=== PATIENT | female | born 1985 | race American Indian/Alaskan Native ===

== ENCOUNTER 2018-02-11 10:33 | Inpatient (IN) | payer OTHER, MEDICARE ==
--- NOTE | 2018-02-11 10:38 | Emergency Department Report ---
- General Stated complaint: POSS STROKE Time Seen by Provider: 02/11/18 10:33 Source: patient, EMS Mode of arrival: Ambulatory Limitations: No Limitations - History of Present Illness Initial comments: Patient is a 32-year-old female? Emergency room with left-sided weakness and left-sided facial droop. Patient states she went to bed last night feeling fine after being discharged from [facility]. Patient is not sure what she was in the hospital for. Son is at bedside. History of 5 with son. Her son and patient patient was woke up approximately hour and a half before arrival and was not able to walk. Patient states she is not able to use her left arm or left leg. And is having difficulty speaking. Last known well time was the night prior before going to sleep at 11 PM. Patient denies chest pain shortness of breath. Patient states she is having difficulty speaking. Patient states she is having some numbness in her left arm and leg. MD Complaint: focal weakness -: Sudden Location: LUE, LLE, L face Severity: severe Consistency: constant Improves with: none Worsens with: none Context: recent illness Associated Symptoms: denies: chest pain, confusion, dark stools, diaphoresis, dysuria, easy bruising, fever/chills, headaches, loss of appetite, nausea/ vomiting, myalgias, rash, shortness of breath, syncope - Related Data Home Medications Medication Instructions Recorded Confirmed Last Taken Carvedilol [Coreg] 25 mg PO BID 02/11/18 02/11/18 Unknown Insulin Aspart [NovoLOG Flexpen] 20 units SUB-Q QDAY 02/11/18 02/11/18 Unknown NIFEdipine [] 90 mg PO DAILY 02/11/18 02/11/18 Unknown hydrALAZINE [Apresoline TAB] 100 mg PO TID 02/11/18 02/11/18 Unknown Allergies Allergy/AdvReac Type Severity Reaction Status Date / Time gluten Allergy Unknown Verified 02/11/18 10:37 latex Allergy Unknown Verified 02/11/18 10:34 nickel Allergy Unknown Verified 02/11/18 10:37 ED Review of Systems ROS: Stated complaint: POSS STROKE Other details as noted in HPI Constitutional: denies: chills, fever Eyes: denies: eye pain, eye discharge, vision change ENT: denies: ear pain, throat pain Respiratory: denies: cough, shortness of breath, wheezing Cardiovascular: denies: chest pain, palpitations Endocrine: no symptoms reported Gastrointestinal: denies: abdominal pain, nausea, diarrhea Genitourinary: denies: urgency, dysuria, discharge Musculoskeletal: denies: back pain, joint swelling, arthralgia Skin: denies: rash, lesions Neurological: weakness, numbness, abnormal gait. denies: headache Psychiatric: denies: anxiety, depression Hematological/Lymphatic: denies: easy bleeding, easy bruising ED Past Medical Hx - Past Medical History Previous Medical History?: Yes Hx Hypertension: Yes Hx CVA: No Hx Heart Attack/AMI: No Hx Congestive Heart Failure: No Hx Diabetes: Yes Hx Renal Disease: Yes (esrd. l arm shunt) - Surgical History Past Surgical History?: Yes Additional Surgical History: hd shunt - Family History Family history: hypertension - Social History Smoking Status: Never Smoker Substance Use Type: None - Medications Home Medications: Home Medications Medication Instructions Recorded Confirmed Last Taken Type Carvedilol [Coreg] 25 mg PO BID 02/11/18 02/11/18 Unknown History Insulin Aspart [NovoLOG Flexpen] 20 units SUB-Q QDAY 02/11/18 02/11/18 Unknown History NIFEdipine [] 90 mg PO DAILY 02/11/18 02/11/18 Unknown History hydrALAZINE [Apresoline TAB] 100 mg PO TID 02/11/18 02/11/18 Unknown History ED Physical Exam - General General appearance: alert, lethargic - Head Head exam: Present: atraumatic, normocephalic - Eye Eye exam: Present: normal appearance, PERRL Pupils: Present: normal accommodation - ENT ENT exam: Present: mucous membranes moist - Neck Neck exam: Present: normal inspection - Respiratory Respiratory exam: Present: normal lung sounds bilaterally. Absent: respiratory distress, wheezes, rales, rhonchi - Cardiovascular Cardiovascular Exam: Present: regular rate, normal rhythm. Absent: systolic murmur, diastolic murmur, rubs, gallop - GI/Abdominal GI/Abdominal exam: Present: soft, normal bowel sounds - Extremities Exam Extremities exam: Present: normal inspection - Back Exam Back exam: Present: normal inspection - Neurological Exam Neurological exam: Present: oriented X3 - Skin Skin exam: Present: warm, dry, intact, normal color. Absent: rash - Assessment Assessment Interval: Baseline - Level of Consciousness 1a. Level of Consciousness: alert - LOC Questions 1b. LOC Questions: answers correctly - LOC Command 1c. LOC Commands: performs tasks correctly - Best Gaze 2. Best Gaze: normal - Visual 3. Visual: no visual loss - Facial Palsy 4. Facial Palsy: partial paralysis - Motor Arm 5b. Motor Arm Right: no drift 5a. Motor Arm Left: no movement - Motor Leg 6a. Motor Leg Left: no movement 6b. Motor Leg Right: no drift - Limb Ataxia 7. Limb Ataxia: absent - Sensory 8. Sensory: mild/moderate sensory loss - Best Language 9. Best Language: no aphasia - Dysarthria 10. Dysarthria: mild/moderate dysarthria - Extinction and Inattention 11. Extinction/Inattention: no abnormality - Scoring Total Score: 12 Stroke Severity: Moderate Stroke ED Course Vital Signs 02/11/18 02/11/18 02/11/18 11:00 11:10 12:39 Temperature Pulse Rate 91 H 91 H Respiratory 18 18 16 Rate Blood Pressure 256/129 256/126 [Left] O2 Sat by Pulse 95 100 Oximetry 02/11/18 02/11/18 13:03 14:37 Temperature 98.6 F Pulse Rate 87 89 Respiratory 17 14 Rate Blood Pressure 126/63 195/94 [Left] O2 Sat by Pulse 97 99 Oximetry - Reevaluation(s) Reevaluation #1: Patient assessment on arrival. Patient noted to have left-sided weakness and a left facial droop. Patient sent for a CT scan of her head. We'll activate stroke protocol 02/11/18 10:20 Reevaluation #2: Radiologist called with negative CT head results 02/11/18 10:45 Reevaluation #3: Mother at bedside. Mother states that the patient has dialysis in to much fluid was pulled off she is has these strokelike symptoms. Patient has had left sided weakness multiple times after dialysis. Patient was discharged from the hospital one day prior for the same symptoms after spending a week in the [facility]. Blood pressure is better. We will start insulin gtt 02/11/18 13:07 Reevaluation #4: Blood pressure below 180/110. Patient in room. patient just completed CTA. CTA is pending. CTA was delayed due to machine not functioning. 02/11/18 14:38 - Consultations Consultation #1: Dr. Rojas, tele neuro consulted for possible TPA. Neurologist states the patient is not a candidate for TPA but recommends admission to the hospital and a CTA of neck and head right now. 02/11/18 10:59 Consultation #2: Hospitalist consulted for admission. Dr. Owens to assume care. Hospitalist to admit. Full report given to hospitalists. 02/11/18 15:04 ED Medical Decision Making - Lab Data Result diagrams: 02/11/18 10:46 02/11/18 10:46 - EKG Data -: EKG Interpreted by Ny EKG shows normal: sinus rhythm, axis, intervals, QRS complexes, ST-T waves Rate: normal - Radiology Data Radiology results: report reviewed CT HEAD WITHOUT CONTRAST: HISTORY: Neurological deficit. TECHNIQUE: Sequential 2.5mm CT images. COMPARISON: none. FINDINGS: Cerebral Parenchyma: Within normal limits. Cerebellum: Within normal limits. Brainstem: Within normal limits. Ventricles: Normal. Sella: Normal. Extra-axial spaces: Normal. Basal Cisterns: Normal. Intracranial Hemorrhage: None. Midline Shift: None. Calvarium: Normal. Sinuses: Normal. Mastoid Air Cells: Normal. Visualized Orbits: Normal. IMPRESSION: Cranial CT scan within normal limits. These findings were discussed with Dr. Morejon in the emergency department at 1041 hrs. CTA HEAD: HISTORY: CVA. TECHNIQUE: Helical CT images after IV contrast with 0.625mm reformations. Sagittal and coronal reformats. Rotational MIP images. 3D volume rendering technique. FINDINGS: The arterial structures of the anterior and posterior circulations are patent throughout. No evidence for stenosis, occlusion or aneurysm. IMPRESSION: Unremarkable CTA head. Transcribed By: TTR Dictated By: GA CASON JR, MD Electronically Authenticated By: GA CASON JR, MD Signed Date/Time: 02/11/18 1437 CTA NECK: HISTORY: CVA. TECHNIQUE: Helical CT following IV contrast. Sagittal and coronal reformatted images. 3D volume rendering technique. Stenosis was calculated using NASCET criteria. FINDINGS: The visualized aortic arch, innominate artery and proximal bilateral subclavian arteries are widely patent with less than 20% stenosis. Within the right carotid system: Less than 20% stenosis. Within the left carotid system: Less than 20% stenosis. The cervical vertebral arteries are patent with less than 20% stenosis. Moderate layering bilateral pleural effusions are partially imaged at the lung apices. IMPRESSION: Unremarkable CTA of the neck. Bilateral pleural effusions. Transcribed By: TTR Dictated By: GA CASON JR, MD Electronically Authenticated By: GA CASON JR, MD Signed Date/Time: 02/11/18 1438 - Medical Decision Making 32-year-old female presents emergent with left-sided weakness and paralysis and left-sided facial droop. Patient's outside the window for TPA. CT head and neck negative for thrombus. Neuro Was Consulted. Patient to Be Admitted to the Hospitalist Service for Further Evaluation and Treatment. Elevated troponin most likely secondary to end-stage renal disease. Patient is currently on insulin drip and nicardipine drip - Differential Diagnosis cva. hyperglcemia, htn,. Critical Care Time: Yes Critical care attestation.: If time is entered above; I have spent that time in minutes in the direct care of this critically ill patient, excluding procedure time. Critical Care Time: 65 minutes for cc time ED Disposition Clinical Impression: CVA (cerebral vascular accident), Left-sided weakness, Facial droop, Elevated troponin, End stage renal disease Disposition: OP ADMIT IP TO THIS HOSP Is pt being admited?: Yes Does the pt Need Aspirin: No Condition: Critical Time of Disposition: 15:02
--- NOTE | 2018-02-11 10:47 | Cat Scan Report ---
CT HEAD WITHOUT CONTRAST: HISTORY: Neurological deficit. TECHNIQUE: Sequential 2.5mm CT images. COMPARISON: none. FINDINGS: Cerebral Parenchyma: Within normal limits. Cerebellum: Within normal limits. Brainstem: Within normal limits. Ventricles: Normal. Sella: Normal. Extra-axial spaces: Normal. Basal Cisterns: Normal. Intracranial Hemorrhage: None. Midline Shift: None. Calvarium: Normal. Sinuses: Normal. Mastoid Air Cells: Normal. Visualized Orbits: Normal. IMPRESSION: Cranial CT scan within normal limits. These findings were discussed with Dr. Morejon in the emergency department at 1041 hrs.
[2018-02-11 11:02] LABS: Basophils % (Auto) 0.9 % (0.0-1.8); Eosinophils % (Auto) 0.6 % (0.0-4.3); Hematocrit 29.6 % (30.3-42.9); Hemoglobin 9.7 gm/dl (10.1-14.3); Lymphocytes # (Auto) 0.4 K/mm3 (1.2-5.4); Lymphocytes % (Auto) 9.1 % (13.4-35.0); Mean Corpuscular HGB Conc 33 % (30-34); Mean Corpuscular Hemoglobin 28 pg (28-32); Mean Corpuscular Volume 84 fl (79-97); Monocytes # (Auto) 0.2 K/mm3 (0.0-0.8); Monocytes % (Auto) 5.6 % (0.0-7.3); Platelet Count 147 K/mm3 (140-440); Red Blood Count 3.51 M/mm3 (3.65-5.03)
[2018-02-11 11:15] LABS: Calcium 8.8 mg/dL (8.4-10.2)
[2018-02-11 11:16] LABS: INR 0.95 (0.87-1.13)
[2018-02-11 11:17] LABS: Partial Thromboplastin Time 25.2 Sec. (24.2-36.6)
[2018-02-11] MEDS ORDERED: CARDENE 50 MG in NACL 0.9% 250ML 230 ML IV SCH (12:00)
[2018-02-11] MEDS ORDERED: HumuLIN R 100 UNITS in NACL 0.9% 99 ML IV SCH ×2 (13:30→16:00)
--- NOTE | 2018-02-11 14:41 | Cat Scan Report ---
CTA NECK: HISTORY: CVA. TECHNIQUE: Helical CT following IV contrast. Sagittal and coronal reformatted images. 3D volume rendering technique. Stenosis was calculated using NASCET criteria. FINDINGS: The visualized aortic arch, innominate artery and proximal bilateral subclavian arteries are widely patent with less than 20% stenosis. Within the right carotid system: Less than 20% stenosis. Within the left carotid system: Less than 20% stenosis. The cervical vertebral arteries are patent with less than 20% stenosis. Moderate layering bilateral pleural effusions are partially imaged at the lung apices. IMPRESSION: Unremarkable CTA of the neck. Bilateral pleural effusions.
--- NOTE | 2018-02-11 14:43 | Cat Scan Report ---
CTA HEAD: HISTORY: CVA. TECHNIQUE: Helical CT images after IV contrast with 0.625mm reformations. Sagittal and coronal reformats. Rotational MIP images. 3D volume rendering technique. FINDINGS: The arterial structures of the anterior and posterior circulations are patent throughout. No evidence for stenosis, occlusion or aneurysm. IMPRESSION: Unremarkable CTA head.
--- NOTE | 2018-02-11 15:03 | History and Physical Report ---
History of Present Illness Chief complaint: weak History of present illness: 32 YO Female with ESRD on HD, DM, Gastroparesis, HTN presents to ED for evaluation. Pt is confused and unable to provide history. Pt mother and aunt at bedside and provide history. As per family, the patient was in her usual state of health at bedtime around 2300 hrs, but awoke from sleep this morning around 0900hrs and complained of slurred speech, inability to move left arm and left leg. EMS notified, and upon arrival the patient was found to have confusion. Pt transported to [facility] for further care. Pt seen and evaluated in ED and found to have DKA, Encephalopathy, ESRD, and Hypertensive Emergency. Pt also found to have symptoms consistent with CVA. Pt admitted to ICU. No reports of fever, chills, CP, Palpitations, NVD, Syncope, Trauma, BRBPR, Unintentional weight loss , night sweats. Pt discharged from [facility] on day prior to admission. Past History Past Medical History: diabetes, ESRD, hypertension Past Surgical History: Other (AV Fistula) Social history: . denies: smoking, alcohol abuse, prescription drug abuse Family history: hypertension Medications and Allergies Allergies Allergy/AdvReac Type Severity Reaction Status Date / Time gluten Allergy Unknown Verified 02/11/18 10:37 latex Allergy Unknown Verified 02/11/18 10:34 nickel Allergy Unknown Verified 02/11/18 10:37 Home Medications Medication Instructions Recorded Confirmed Last Taken Type Carvedilol [Coreg] 25 mg PO BID 02/11/18 02/11/18 Unknown History Insulin Aspart [NovoLOG Flexpen] 20 units SUB-Q QDAY 02/11/18 02/11/18 Unknown History NIFEdipine [] 90 mg PO DAILY 02/11/18 02/11/18 Unknown History hydrALAZINE [Apresoline TAB] 100 mg PO TID 02/11/18 02/11/18 Unknown History Active Meds: Active Medications Nicardipine HCl 50 mg/ Sodium (Chloride) 250 mls @ 25 mls/hr IV TITR EDVIN; Protocol Last Admin: 02/11/18 12:42 Dose: 5 mg/hr, 25 mls/hr Insulin Human Regular 100 (units/ Sodium Chloride) 100 mls @ 1 mls/hr IV TITR EDVIN; Protocol Last Admin: 02/11/18 14:09 Dose: 8 units/hr, 8 mls/hr Review of Systems ROS unobtainable: due to mental status Exam - Constitutional Vitals: Temp Pulse Resp BP Pulse Ox 98.6 F 89 14 195/94 99 02/11/18 13:03 02/11/18 14:37 02/11/18 14:37 02/11/18 14:37 02/11/18 14:37 General appearance: Present: severe distress - EENT Eyes: Present: PERRL ENT: hearing intact, clear oral mucosa - Neck Neck: Present: supple, normal ROM - Respiratory Respiratory effort: labored Respiratory: bilateral: diminished - Cardiovascular Rhythm: other (tachycardia) Heart Sounds: Present: S1 & S2. Absent: rub, click - Extremities Extremities: pulses symmetrical, No edema Peripheral Pulses: within normal limits - Abdominal General gastrointestinal: Present: soft, non-tender, non-distended, normal bowel sounds Female genitourinary: Present: normal - Integumentary Integumentary: Present: clear, warm, dry - Musculoskeletal Musculoskeletal: left sided weakness, generalized weakness - Psychiatric Psychiatric: no intact judgment & insight, no memory intact - Neurologic Neurologic: focal deficits, no gait normal Results - Labs CBC & Chem 7: 02/11/18 10:46 02/11/18 15:22 Labs: Abnormal lab results 02/11/18 02/11/18 02/11/18 Range/Units 10:39 10:46 10:46 WBC 4.1 L (4.5-11.0) K/mm3 RBC 3.51 L (3.65-5.03) M/mm3 Hgb 9.7 L (10.1-14.3) gm/dl Hct 29.6 L (30.3-42.9) % Lymph % (Auto) 9.1 L (13.4-35.0) % Lymph # 0.4 L (1.2-5.4) K/mm3 Seg Neutrophils % 83.8 H (40.0-70.0) % Sodium 121 L (137-145) mmol/L Chloride 82.9 L (98-107) mmol/L BUN 42 H (7-17) mg/dL Creatinine 8.4 H (0.7-1.2) mg/dL Glucose 808 H* (65-100) mg/dL POC Glucose > 500 H (70-105) Troponin T 0.047 H (0.00-0.029) ng/mL HDL Cholesterol 63 H (40-59) mg/dL 02/11/18 Range/Units 13:52 WBC (4.5-11.0) K/mm3 RBC (3.65-5.03) M/mm3 Hgb (10.1-14.3) gm/dl Hct (30.3-42.9) % Lymph % (Auto) (13.4-35.0) % Lymph # (1.2-5.4) K/mm3 Seg Neutrophils % (40.0-70.0) % Sodium (137-145) mmol/L Chloride (98-107) mmol/L BUN (7-17) mg/dL Creatinine (0.7-1.2) mg/dL Glucose (65-100) mg/dL POC Glucose > 500 H (70-105) Troponin T (0.00-0.029) ng/mL HDL Cholesterol (40-59) mg/dL Assessment and Plan - Patient Problems (1) DKA (diabetic ketoacidoses) Current Visit: Yes Status: Acute Qualifiers: Diabetes mellitus type: type 1 Diabetes mellitus complication detail: with coma Qualified Code(s): E10.11 - Type 1 diabetes mellitus with ketoacidosis with coma Plan to address problem: DKA Protocol: Insulin drip, serial bmp, potassium replacement, IVF resuscitation , monitor anion gap, The high probability of a clinically significant, sudden or life threatening deterioration of the [Neuro, renal, endocrine] system(s) required my full and direct attention, intervention and personal management. The aggregate critical care time was [65] minutes. This time is in addition to time spent performing reported procedures but includes the following: [x] Data Review and interpretation [x] Patient assessment and monitoring of vital signs [x] Documentation [x] Medication orders and management (2) Encephalopathy Current Visit: Yes Status: Acute Plan to address problem: CT Head, supportive care, treat DKA, (3) End stage renal disease Current Visit: Yes Status: Acute Plan to address problem: Nephrology consulted in ED, monitor uop q shift, (4) CVA (cerebral vascular accident) Current Visit: Yes Status: Acute Qualifiers: Precerebral and cerebral artery: middle cerebral artery Laterality of affected vessel: right Plan to address problem: Stroke Protocol: CT Head, MRI Brain, BRA Brain, Echo, Carotid doppler, PT/OT/ Speech, antiplatelet therapy (5) Acidosis Current Visit: Yes Status: Acute Plan to address problem: Treat DKA, serial bmp, supportive care. (6) DVT prophylaxis Current Visit: Yes Status: Acute Plan to address problem: SCD to ble while in bed.
[2018-02-11] MEDS ORDERED: D50W (25GM) Syringe IV PRN (15:08)
[2018-02-11] MEDS ORDERED: SODIUM CHLORIDE FLUSH SYRINGE 10 ML IV PRN ×2 (15:08→15:11)
[2018-02-11] MEDS ORDERED: DULCOLAX PR PRN (15:11)
[2018-02-11] MEDS ORDERED: REGLAN PO PRN (15:11)
[2018-02-11] MEDS ORDERED: MILK OF MAGNESIA PO PRN (15:11)
[2018-02-11] MEDS ORDERED: TYLENOL PO PRN (15:11)
[2018-02-11] MEDS ORDERED: PHENERGAN PR PRN (15:11)
[2018-02-11] MEDS: ZOFRAN IV PRN (15:36)
[2018-02-11 16:03] LABS: Calcium 8.5 mg/dL (8.4-10.2)
[2018-02-11] MEDS ORDERED: NACL 0.9% 100 ML IV PRN (16:28)
--- NOTE | 2018-02-11 16:31 | Consultation ---
History of Present Illness - Reason for Consult Consult date: 02/11/18 end stage renal disease, accelerated hypertension - History of Present Illness The patient is a 32 YO Female with history significant for ESRD on HD, DM-1, Gastroparesis, HTN and Medical non-compliance who presented to ED for evaluation of AMS. Pt was not able to provide any history and there was no family member at the bedside. Pt awoke from sleep this morning around 0900 hrs and complained of slurred speech, inability to move left arm and left leg. Upon arrival to ED the patient was found to be confusion, bl sugar 808 and Hypertensive ugency. Patient used to receive hemodialysis at [facility] but discharged due to non-compliance. Currently she dont have a [employer] or outpatient dialysis unit. She was last dialyzed 2 days ago at [facility]. Past History Past Medical History: anemia, diabetes, dialysis, ESRD, hypertension Medications and Allergies Allergies Allergy/AdvReac Type Severity Reaction Status Date / Time gluten Allergy Unknown Verified 02/11/18 10:37 latex Allergy Unknown Verified 02/11/18 10:34 nickel Allergy Unknown Verified 02/11/18 10:37 Home Medications Medication Instructions Recorded Confirmed Last Taken Type Carvedilol [Coreg] 25 mg PO BID 02/11/18 02/11/18 Unknown History Insulin Aspart [NovoLOG Flexpen] 20 units SUB-Q QDAY 02/11/18 02/11/18 Unknown History NIFEdipine [] 90 mg PO DAILY 02/11/18 02/11/18 Unknown History hydrALAZINE [Apresoline TAB] 100 mg PO TID 02/11/18 02/11/18 Unknown History Active Meds: Active Medications Acetaminophen (Tylenol) 650 mg PO Q4H PRN PRN Reason: Pain, Mild (1-3) Aspirin (Aspirin) 325 mg PO QDAY EDVIN Atorvastatin Calcium (Lipitor) 40 mg PO QHS EDVIN Bisacodyl (Dulcolax) 10 mg ND QDAY PRN PRN Reason: Constipation Carvedilol (Coreg) 25 mg PO BID EDVIN Dextrose (D50w (25gm) Syringe) 0 ml IV PRN PRN PRN Reason: Hypoglycemia Dextrose (D50w (25gm) Syringe) 0 ml IV ONCE PRN PRN Reason: Hypoglycemia Hydralazine HCl (Apresoline) 100 mg PO TID EDVIN Hydralazine HCl (Apresoline) 20 mg IV Q6HR PRN PRN Reason: Hypertension Insulin Human Regular 100 (units/ Sodium Chloride) 100 mls @ 1 mls/hr IV TITR EDVIN; Protocol Magnesium Hydroxide (Milk Of Magnesia) 30 ml PO Q4H PRN PRN Reason: Constipation Metoclopramide HCl (Reglan) 10 mg PO Q6H PRN PRN Reason: Nausea And Vomiting Miscellaneous Medication (Nifedipine [Nifedipine Er]) 90 mg PO DAILY EDVIN Ondansetron HCl (Zofran) 4 mg IV Q8H PRN PRN Reason: Nausea And Vomiting Last Admin: 02/11/18 15:36 Dose: 4 mg Promethazine HCl (Phenergan) 25 mg ND Q6H PRN PRN Reason: Nausea And Vomiting Sodium Chloride (Sodium Chloride Flush Syringe 10 Ml) 10 ml IV BID EDVIN Sodium Chloride (Sodium Chloride Flush Syringe 10 Ml) 10 ml IV PRN PRN PRN Reason: LINE FLUSH Review of Systems ROS unobtainable: due to mental status Exam - Vital Signs Vital signs: Vital Signs Pulse Resp BP 91 H 18 256/129 02/11/18 11:00 02/11/18 11:00 02/11/18 11:00 - General Appearance General appearance: well-developed, well-nourished, appears stated age, other ( Power Plant Electrician present, 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 Absent: tenderness Integumentary: no rash, warm and dry Neurologic: hemiplegic (left sided), other (somnolent) Musculoskeletal: Present: other (no edema, left arm AVF) Results - Lab Results 02/11/18 10:46 02/12/18 10:19 Most recent lab results Calcium 8.5 mg/dL (8.4-10.2) 02/11/18 15:22 Phosphorus 3.80 mg/dL (2.5-4.5) 02/11/18 15:22 Magnesium 2.10 mg/dL (1.7-2.3) 02/11/18 15:22 Assessment and Plan 1. ESRD: Patient was last dialyzed on 02/09/18 at [facility]. She don't have a established unit at present. Continue hemodialysis as ordered, tolerating HD well. 2. Hypertension: UF with HD, 2 Lts as tolerated. 3. Anemia. 4. Uncontrolled DM. 5. Left sided weakness.
[2018-02-11] MEDS ORDERED: APRESOLINE ONE (16:58)
[2018-02-11] MEDS ORDERED: TYLENOL ONE (17:03)
[2018-02-11] MEDS: APRESOLINE IV PRN ×2 (17:05→20:56)
[2018-02-11 19:34] LABS: Calcium 8.9 mg/dL (8.4-10.2)
[2018-02-11] MEDS ORDERED: NACL 0.9% 1000 ML 2,000 ML ONE (19:55)
[2018-02-11] MEDS: APRESOLINE PO SCH (21:25)
[2018-02-11] MEDS: COREG PO SCH (21:26)
[2018-02-11] MEDS: SODIUM CHLORIDE FLUSH SYRINGE 10 ML IV SCH (21:27)
[2018-02-11] MEDS ORDERED: SUBLIMAZE IV ONE (21:49)
[2018-02-11] MEDS: BENADRYL IV PRN (22:02)
[2018-02-11] MEDS: D50W (25GM) Syringe IV PRN (22:14)
[2018-02-11 22:27] LABS: Calcium 9.1 mg/dL (8.4-10.2)
[2018-02-12] MEDS: D50W (25GM) Syringe IV PRN (00:03)
[2018-02-12] MEDS ORDERED: D10W IV SCH (01:00)
[2018-02-12] MEDS ORDERED: D10W 250 ML IV ONE (01:00)
[2018-02-12] MEDS: APRESOLINE IV PRN ×3 (01:19→23:47)
[2018-02-12] MEDS: BENADRYL IV PRN ×2 (04:07→23:52)
--- NOTE | 2018-02-12 09:27 | Progress Note ---
Assessment and Plan 1. ESRD: Patient was last dialyzed yesterday. Continue HD MWF. 2. Hypertension: Improving. 3. Anemia. 4. Uncontrolled DM. 5. Left sided weakness. 6. AMS. Subjective Date of service: 02/12/18 Interval history: Patient was seen and examined at the bedside. Objective - Vital Signs Vital signs: Vital Signs - 12hr 02/11/18 02/11/18 02/11/18 21:30 21:41 21:51 Temperature Pulse Rate 99 H 97 H 98 H Respiratory 21 39 H 42 H Rate Blood Pressure 178/76 178/76 186/83 O2 Sat by Pulse 99 99 99 Oximetry 02/11/18 02/11/18 02/11/18 22:00 22:11 22:21 Temperature Pulse Rate 102 H 91 H 89 Respiratory 37 H 58 H 37 H Rate Blood Pressure 175/83 175/83 176/76 O2 Sat by Pulse 100 97 98 Oximetry 02/11/18 02/11/18 02/11/18 22:31 22:41 22:51 Temperature Pulse Rate 87 87 86 Respiratory 31 H 38 H 38 H Rate Blood Pressure 147/66 147/66 148/64 O2 Sat by Pulse 99 99 99 Oximetry 02/11/18 02/11/18 02/11/18 23:00 23:11 23:21 Temperature Pulse Rate 87 85 85 Respiratory 33 H 39 H 28 H Rate Blood Pressure 154/65 154/65 146/67 O2 Sat by Pulse 99 100 100 Oximetry 02/11/18 02/11/18 02/11/18 23:26 23:30 23:33 Temperature 97.5 F L Pulse Rate 85 86 Respiratory 29 H 38 H Rate Blood Pressure 158/70 158/70 O2 Sat by Pulse 100 100 Oximetry 02/11/18 02/11/18 02/12/18 23:41 23:51 00:00 Temperature Pulse Rate 85 89 93 H Respiratory 30 H 48 H 36 H Rate Blood Pressure 158/70 165/76 172/83 O2 Sat by Pulse 100 99 99 Oximetry 02/12/18 02/12/18 02/12/18 00:11 00:21 00:31 Temperature Pulse Rate 95 H 93 H 95 H Respiratory 49 H 42 H 36 H Rate Blood Pressure 172/83 182/91 186/87 O2 Sat by Pulse 99 100 98 Oximetry 02/12/18 02/12/18 02/12/18 00:41 00:51 01:00 Temperature Pulse Rate 93 H 91 H 94 H Respiratory 16 12 14 Rate Blood Pressure 186/87 196/84 199/94 O2 Sat by Pulse 99 100 100 Oximetry 02/12/18 02/12/18 02/12/18 01:11 01:19 01:21 Temperature Pulse Rate 94 H 94 H 96 H Respiratory 11 L 22 Rate Blood Pressure 199/94 199/94 204/94 O2 Sat by Pulse 100 99 Oximetry 02/12/18 02/12/18 02/12/18 01:30 01:41 01:51 Temperature Pulse Rate 93 H 97 H 97 H Respiratory 17 30 H 32 H Rate Blood Pressure 220/104 220/104 216/86 O2 Sat by Pulse 99 99 99 Oximetry 02/12/18 02/12/18 02/12/18 02:01 02:11 02:21 Temperature Pulse Rate 73 95 H 96 H Respiratory 32 H 20 16 Rate Blood Pressure 221/117 221/117 203/91 O2 Sat by Pulse 99 100 100 Oximetry 02/12/18 02/12/18 02/12/18 02:30 02:40 02:51 Temperature Pulse Rate 98 H 95 H 95 H Respiratory 19 19 17 Rate Blood Pressure 225/89 221/95 221/95 O2 Sat by Pulse 99 100 100 Oximetry 02/12/18 02/12/18 02/12/18 03:00 03:11 03:21 Temperature Pulse Rate 95 H 96 H 94 H Respiratory 15 16 14 Rate Blood Pressure 234/98 234/98 234/98 O2 Sat by Pulse 100 100 100 Oximetry 02/12/18 02/12/18 02/12/18 03:31 03:41 03:47 Temperature 99.1 F Pulse Rate 94 H 97 H Respiratory 13 14 Rate Blood Pressure 205/89 205/89 O2 Sat by Pulse 100 100 Oximetry 02/12/18 02/12/18 02/12/18 03:51 04:00 04:31 Temperature Pulse Rate 96 H 97 H 101 H Respiratory 18 22 14 Rate Blood Pressure 205/89 204/85 204/85 O2 Sat by Pulse 100 2 L 100 Oximetry 02/12/18 02/12/18 02/12/18 05:00 05:31 06:01 Temperature Pulse Rate 101 H 102 H 98 H Respiratory 18 14 17 Rate Blood Pressure 222/101 222/101 222/101 O2 Sat by Pulse 100 100 100 Oximetry 02/12/18 02/12/18 02/12/18 06:31 07:00 07:31 Temperature Pulse Rate 100 H 97 H 96 H Respiratory 18 30 H 22 Rate Blood Pressure 231/113 218/105 231/113 O2 Sat by Pulse 100 100 100 Oximetry 02/12/18 02/12/18 02/12/18 08:01 08:31 09:00 Temperature Pulse Rate 102 H 97 H 96 H Respiratory 26 H 27 H 22 Rate Blood Pressure 177/96 177/96 190/101 O2 Sat by Pulse 99 99 100 Oximetry - General Appearance General appearance: well-developed, well-nourished, appears stated age, other ( strategic planner present, no distress) EENT: ATNC, PERRL Neck: supple Respiratory: Present: Clear to Ascultation Cardiology: regular, S1S2, no murmurs Gastrointestinal: normoactive bowel sounds, no tenderness Integumentary: no rash, warm and dry Neurologic: other (lethargic, left sided weakness) Musculoskeletal: other (no edema, left arm AVF) - Lab 02/11/18 10:46 02/12/18 10:19 Most recent lab results Calcium 9.1 mg/dL (8.4-10.2) 02/11/18 22:04 Phosphorus 3.80 mg/dL (2.5-4.5) 02/11/18 15:22 Magnesium 2.10 mg/dL (1.7-2.3) 02/11/18 15:22
[2018-02-12] MEDS: ASPIRIN PO SCH (09:32)
[2018-02-12] MEDS: PROCARDIA XL PO SCH (09:32)
[2018-02-12] MEDS: COREG PO SCH (09:32)
[2018-02-12] MEDS: APRESOLINE PO SCH ×2 (09:34→18:05)
[2018-02-12] MEDS ORDERED: NON-FORMULARY (Nifedipine [Nifedipine Er] 90 MG) PO SCH (10:00)
[2018-02-12 11:02] LABS: Calcium 9.1 mg/dL (8.4-10.2)
--- NOTE | 2018-02-12 12:11 | Progress Note ---
Assessment and Plan Assessment and plan: Patient is 32 yo woman with history of ESRD on HD, IDDM with gastroparesis and hypertension who presented to ED with AMS, difficulty speaking, left sided weakness and slurred speech. It appears she was just discharge from a [facility]. Teleneurology was used, and deemed patient not tPA candidate (I am not sure of the reason) * CT head wo contrast IMPRESSION: Cranial CT scan within normal limits. * CTA head reported as unremarkable * CTA neck IMPRESSION: Unremarkable CTA of the neck. Bilateral pleural effusions. -AMS, appears tp be undifferentiated acute metabolic encephalopathy vs CVA: brain MRI and ECHO ordered, consider Neurology consult pending test -Accelerated hypertension with urgency, permissive with limits: use prn iv labetalol. -Not enough objective data to make a diagnosis of DKA, no UA, no ketones/ acetone measured, no pH measured and bicarbonate was 21, currently patient is off insulin drip: add SSI and accucheck -ESRD on hemodialysis: Children'S Aide is following, monitor BMP closely -Hyponatremia with hyperglycemia: use SSI. -Anemia appears chronic due to renal disease: monitor cbc closely -DVT prophylaxis: scd ordered, add sq heparin History Interval history: Patient was seen and examined. Follow-up on current diagnosis of AMS still present. Overnight uneventful. Patient denies any chest pain, shortness breath, nausea/vomiting or severe headaches. Imaging, nursing note, chart, labs and old chart reviewed. Discussed with patient but she is confused. She wouldn't cooperate with history or exam. She wouldn't remove bed covers from over her head. Hospitalist Physical - Physical exam Narrative exam: GEN: WDWN, NAD, Awake, Alert, Orientated HEENT: NCAT, EOMI, PERRL, OP Clear NECK: supple, no adenopathy, no thyromegaly, no JVD CVS/HEART: regular tachycardia, normal S1S2, pulses present bilaterally CHEST/LUNGS: CTA B, Symmetrical chest expansion, good air entry bilaterally GI/Abdomen: soft, NTND, good bowel sounds, no guarding or rebound /Bladder: no suprapubic tenderness, no CVA or paraspinal tenderness EXT/Skin: no c/c/e, no obvious rash MSK: did not cooperate Neuro: CN 2-12 grossly intact, doesn't follow commands but she knows where she is, ?word finding Psych: calm - Constitutional Vitals: Temp Pulse Resp BP Pulse Ox 99.1 F 101 H 22 190/101 100 02/12/18 03:47 02/12/18 09:32 02/12/18 09:00 02/12/18 09:32 02/12/18 09:00 General appearance: Absent: severe distress Results - Labs CBC & Chem 7: 02/11/18 10:46 02/12/18 10:19 Labs: Laboratory Last Values WBC 4.1 K/mm3 (4.5-11.0) L 02/11/18 10:46 RBC 3.51 M/mm3 (3.65-5.03) L 02/11/18 10:46 Hgb 9.7 gm/dl (10.1-14.3) L 02/11/18 10:46 Hct 29.6 % (30.3-42.9) L 02/11/18 10:46 MCV 84 fl (79-97) 02/11/18 10:46 MCH 28 pg (28-32) 02/11/18 10:46 MCHC 33 % (30-34) 02/11/18 10:46 RDW 15.0 % (13.2-15.2) 02/11/18 10:46 Plt Count 147 K/mm3 (140-440) 02/11/18 10:46 Lymph % (Auto) 9.1 % (13.4-35.0) L 02/11/18 10:46 [place] % (Auto) 5.6 % (0.0-7.3) 02/11/18 10:46 Eos % (Auto) 0.6 % (0.0-4.3) 02/11/18 10:46 Baso % (Auto) 0.9 % (0.0-1.8) 02/11/18 10:46 Lymph # 0.4 K/mm3 (1.2-5.4) L 02/11/18 10:46 [place] # 0.2 K/mm3 (0.0-0.8) 02/11/18 10:46 Eos # 0.0 K/mm3 (0.0-0.4) 02/11/18 10:46 Baso # 0.0 K/mm3 (0.0-0.1) 02/11/18 10:46 Seg Neutrophils % 83.8 % (40.0-70.0) H 02/11/18 10:46 Seg Neutrophils # 3.4 K/mm3 (1.8-7.7) 02/11/18 10:46 PT 13.1 Sec. (12.2-14.9) 02/11/18 10:46 INR 0.95 (0.87-1.13) 02/11/18 10:46 APTT 25.2 Sec. (24.2-36.6) 02/11/18 10:46 Thrombin Time 19.4 Sec. (15.1-19.6) 02/11/18 10:46 Sodium 130 mmol/L (137-145) L 02/12/18 10:19 Potassium 4.6 mmol/L (3.6-5.0) D 02/12/18 10:19 Chloride 90.1 mmol/L (98-107) L 02/12/18 10:19 Carbon Dioxide 19 mmol/L (22-30) L D 02/12/18 10:19 Anion Gap 26 mmol/L 02/12/18 10:19 BUN 20 mg/dL (7-17) H 02/12/18 10:19 Creatinine 5.5 mg/dL (0.7-1.2) H 02/12/18 10:19 Estimated GFR 11 ml/min 02/12/18 10:19 BUN/Creatinine Ratio 4 % 02/12/18 10:19 Glucose 190 mg/dL (65-100) H 02/12/18 10:19 POC Glucose 186 (70-105) H 02/12/18 09:52 Calcium 9.1 mg/dL (8.4-10.2) 02/12/18 10:19 Phosphorus 3.80 mg/dL (2.5-4.5) 02/11/18 15:22 Magnesium 2.10 mg/dL (1.7-2.3) 02/11/18 15:22 Troponin T 0.047 ng/mL (0.00-0.029) H 02/11/18 10:46 Triglycerides 100 mg/dL (2-149) 02/11/18 10:46 Cholesterol 189 mg/dL (50-199) 02/11/18 10:46 LDL Cholesterol Direct 123 mg/dL (50-130) 02/11/18 10:46 HDL Cholesterol 63 mg/dL (40-59) H 02/11/18 10:46 Cholesterol/HDL Ratio 3.00 % 02/11/18 10:46
[2018-02-12] MEDS ORDERED: D50W (25GM) Syringe IV PRN (12:16)
[2018-02-12] MEDS: HumaLOG SUB-Q SCH (13:00)
[2018-02-12] MEDS: SODIUM CHLORIDE FLUSH SYRINGE 10 ML IV SCH (18:04)
[2018-02-12] MEDS ORDERED: ZOFRAN PO PRN (23:07)
[2018-02-12] MEDS ORDERED: PHENERGAN PR PRN (23:17)
[2018-02-12] MEDS: ZOFRAN IV PRN (23:48)
[2018-02-13] MEDS: HumaLOG SUB-Q SCH ×7 (00:14→17:41)
[2018-02-13] MEDS: COREG PO SCH ×2 (02:45→11:51)
[2018-02-13] MEDS: APRESOLINE IV PRN ×3 (03:16→21:26)
[2018-02-13] MEDS: ZOFRAN IV PRN ×3 (04:36→22:14)
[2018-02-13 04:58] LABS: Hematocrit 32.6 % (30.3-42.9); Hemoglobin 10.7 gm/dl (10.1-14.3); Mean Corpuscular HGB Conc 33 % (30-34); Mean Corpuscular Hemoglobin 28 pg (28-32); Mean Corpuscular Volume 84 fl (79-97); Red Blood Count 3.88 M/mm3 (3.65-5.03); Red Cell Distribution Width 15.4 % (13.2-15.2)
[2018-02-13 04:59] LABS: Platelet Count 177 K/mm3 (140-440)
[2018-02-13 05:15] LABS: Calcium 9.2 mg/dL (8.4-10.2)
[2018-02-13] MEDS ORDERED: APRESOLINE IV ONE (06:15)
--- NOTE | 2018-02-13 07:57 | Progress Note ---
Assessment and Plan 1. ESRD: Patient was last dialyzed 2 days ago. Continue HD MWF. 2. Hypertension: Add Clonidine patch. Monitor. 3. Anemia. 4. Uncontrolled DM. 5. Left sided weakness. 6. AMS. Subjective Date of service: 02/13/18 Interval history: Patient was seen and examined at the bedside. Her lady friend was at the bedside. Objective - Vital Signs Vital signs: Vital Signs - 12hr 02/12/18 02/12/18 02/13/18 23:00 23:47 01:00 Temperature Pulse Rate 99 H 99 H Pulse Rate [ 97 H From Monitor] Respiratory 18 18 Rate Blood Pressure 203/106 Blood Pressure 170/79 [Left] O2 Sat by Pulse 98 Oximetry 02/13/18 02/13/18 02/13/18 03:16 04:00 06:21 Temperature 99.8 F H Pulse Rate 101 H 98 H 99 H Pulse Rate [ From Monitor] Respiratory 18 Rate Blood Pressure 201/92 188/105 Blood Pressure 201/92 [Left] O2 Sat by Pulse 97 Oximetry - General Appearance General appearance: well-developed, well-nourished, appears stated age, other ( somnolent, no distress) EENT: ATNC, PERRL, hearing intact Neck: supple Respiratory: Present: Clear to Ascultation Cardiology: regular, S1S2, no murmurs Gastrointestinal: normoactive bowel sounds, no tenderness Integumentary: no rash, warm and dry Neurologic: other (not following any command) Musculoskeletal: other (no edema, left arm AVF) - Lab 02/13/18 04:33 02/13/18 04:33 Most recent lab results Calcium 9.2 mg/dL (8.4-10.2) 02/13/18 04:33 Phosphorus 3.80 mg/dL (2.5-4.5) 02/11/18 15:22 Magnesium 2.10 mg/dL (1.7-2.3) 02/11/18 15:22
[2018-02-13] MEDS: BENADRYL IV PRN (08:46)
--- NOTE | 2018-02-13 11:20 | Progress Note ---
Assessment and Plan Assessment and plan: Patient is 32 yo woman with history of ESRD on HD, IDDM with gastroparesis and hypertension who presented to ED with AMS, difficulty speaking, left sided weakness and slurred speech. It appears she was just discharge from a [facility]. Teleneurology was used, and deemed patient not tPA candidate (I am not sure of the reason) * CT head wo contrast IMPRESSION: Cranial CT scan within normal limits. * CTA head reported as unremarkable * CTA neck IMPRESSION: Unremarkable CTA of the neck. Bilateral pleural effusions. * 2D ECHO reported incompleted exam due to uncooperation of patient, mild concentric lvh, est ef 60-65%, -AMS, appears tp be undifferentiated acute metabolic encephalopathy vs CVA: brain MRI pending, consider Neurology consult pending test -Accelerated hypertension with urgency, permissive with limits: use prn iv labetalol. -Not enough objective data to make a diagnosis of DKA, no UA, no ketones/ acetone measured, no pH measured and bicarbonate was 21, currently patient is off insulin drip: add SSI and accucheck -ESRD on hemodialysis: Building Energy Consultant is following, monitor BMP closely -Hyponatremia with hyperglycemia: use SSI. -Anemia appears chronic due to renal disease: monitor cbc closely -DVT prophylaxis: scd ordered, add sq heparin History Interval history: Patient was seen and examined. Follow-up on current diagnosis of AMS, less confused. Overnight uneventful. Patient denies any chest pain, shortness breath , nausea/vomiting or severe headaches. Imaging, nursing note, chart, labs and old chart reviewed. Discussed with patient. Hospitalist Physical - Physical exam Narrative exam: GEN: WDWN, NAD, Awake, Alert, Orientated x 3, fluent speech HEENT: NCAT, would not look left, PERRL, OP Clear NECK: supple, no adenopathy, no thyromegaly, no JVD CVS/HEART: regular tachycardia, normal S1S2, pulses present bilaterally CHEST/LUNGS: CTA B, Symmetrical chest expansion, good air entry bilaterally GI/Abdomen: soft, NTND, good bowel sounds, no guarding or rebound /Bladder: no suprapubic tenderness, no CVA or paraspinal tenderness EXT/Skin: no c/c/e, no obvious rash MSK: left upper extermity weaker then right, Neuro: CN 2-12 grossly intact, no new deficits, facial droop and left side weakness Psych: calm - Constitutional Vitals: Temp Pulse Resp BP Pulse Ox 99.8 F H 97 H 12 188/105 97 02/13/18 04:00 02/13/18 10:00 02/13/18 07:00 02/13/18 06:21 02/13/18 04:00 General appearance: Absent: severe distress Results - Labs CBC & Chem 7: 02/13/18 04:33 02/13/18 04:33 Labs: Laboratory Last Values WBC 11.2 K/mm3 (4.5-11.0) H 02/13/18 04:33 RBC 3.88 M/mm3 (3.65-5.03) 02/13/18 04:33 Hgb 10.7 gm/dl (10.1-14.3) 02/13/18 04:33 Hct 32.6 % (30.3-42.9) 02/13/18 04:33 MCV 84 fl (79-97) 02/13/18 04:33 MCH 28 pg (28-32) 02/13/18 04:33 MCHC 33 % (30-34) 02/13/18 04:33 RDW 15.4 % (13.2-15.2) H 02/13/18 04:33 Plt Count 177 K/mm3 (140-440) 02/13/18 04:33 Lymph % (Auto) 9.1 % (13.4-35.0) L 02/11/18 10:46 [place] % (Auto) 5.6 % (0.0-7.3) 02/11/18 10:46 Eos % (Auto) 0.6 % (0.0-4.3) 02/11/18 10:46 Baso % (Auto) 0.9 % (0.0-1.8) 02/11/18 10:46 Lymph # 0.4 K/mm3 (1.2-5.4) L 02/11/18 10:46 [place] # 0.2 K/mm3 (0.0-0.8) 02/11/18 10:46 Eos # 0.0 K/mm3 (0.0-0.4) 02/11/18 10:46 Baso # 0.0 K/mm3 (0.0-0.1) 02/11/18 10:46 Seg Neutrophils % 83.8 % (40.0-70.0) H 02/11/18 10:46 Seg Neutrophils # 3.4 K/mm3 (1.8-7.7) 02/11/18 10:46 PT 13.1 Sec. (12.2-14.9) 02/11/18 10:46 INR 0.95 (0.87-1.13) 02/11/18 10:46 APTT 25.2 Sec. (24.2-36.6) 02/11/18 10:46 Thrombin Time 19.4 Sec. (15.1-19.6) 02/11/18 10:46 Sodium 136 mmol/L (137-145) L 02/13/18 04:33 Potassium 4.2 mmol/L (3.6-5.0) 02/13/18 04:33 Chloride 89.1 mmol/L (98-107) L 02/13/18 04:33 Carbon Dioxide 21 mmol/L (22-30) L 02/13/18 04:33 Anion Gap 30 mmol/L 02/13/18 04:33 BUN 30 mg/dL (7-17) H 02/13/18 04:33 Creatinine 7.0 mg/dL (0.7-1.2) H 02/13/18 04:33 Estimated GFR 8 ml/min 02/13/18 04:33 BUN/Creatinine Ratio 4 % 02/13/18 04:33 Glucose 250 mg/dL (65-100) H 02/13/18 04:33 POC Glucose 187 (70-105) H 02/13/18 08:30 Calcium 9.2 mg/dL (8.4-10.2) 02/13/18 04:33 Phosphorus 3.80 mg/dL (2.5-4.5) 02/11/18 15:22 Magnesium 2.10 mg/dL (1.7-2.3) 02/11/18 15:22 Troponin T 0.047 ng/mL (0.00-0.029) H 02/11/18 10:46 Triglycerides 100 mg/dL (2-149) 02/11/18 10:46 Cholesterol 189 mg/dL (50-199) 02/11/18 10:46 LDL Cholesterol Direct 123 mg/dL (50-130) 02/11/18 10:46 HDL Cholesterol 63 mg/dL (40-59) H 02/11/18 10:46 Cholesterol/HDL Ratio 3.00 % 02/11/18 10:46
--- NOTE | 2018-02-13 11:31 | Magnetic Resonance Report ---
FINAL REPORT EXAM: MR MRA/MRV HEAD WO CON HISTORY: stroke TECHNIQUE: MR angiography of the brain performed. 3D time of flight axial images and reformatted angiographic views were obtained. PRIORS: None. FINDINGS: The anterior and posterior cerebral circulations are intact. The [place] intact. There is no intravascular filling defects seen. No cerebral aneurysm is seen. IMPRESSION: There is no significant abnormality identified.
--- NOTE | 2018-02-13 11:49 | Magnetic Resonance Report ---
FINAL REPORT EXAM: MR BRAIN WO CON HISTORY: stroke TECHNIQUE: MRI of the brain was performed. Images include: Sagittal T1, axial diffusion, axial ADC map, axial gradient, axial T2, axial FLAIR,, axial T1, coronal FLAIR PRIORS: None. FINDINGS: There are no abnormal areas of diffusion restriction to indicate acute infarct. There is no edema, mass effect or midline shift. There is some focal T1 hyperintensity in the left basal ganglia which is of unclear significance in etiology. Differential considerations include but are not limited to hemorrhage, calcification, neurofibromatosis, cirrhotic hepatic failure, diabetic calcification, neurofibromatosis, cirrhotic hepatic failure, diabetic hyperglycemia. Note that there no other for findings in hemorrhage but correlation with CT recommended. Diffusion imaging demonstrates no evidence of acute infarct so less likely as well. The ventricular size is appropriate for brain volume. There is no abnormal extra-axial fluid collection. IMPRESSION: There is some mild T1 hyperintensity in the left basal ganglia unknown significance in etiology. Differential considerations include but are not limited to hemorrhage, and diabetic hyperglycemia. Note that there are no other findings of hemorrhage but correlation with CT recommended. Diffusion imaging demonstrates no evidence of acute infarct/ischemia so this is less likely as well.
[2018-02-13] MEDS: APRESOLINE PO SCH (11:50)
[2018-02-13] MEDS: ASPIRIN PO SCH (11:51)
[2018-02-13] MEDS: PROCARDIA XL PO SCH (11:52)
[2018-02-13] MEDS ORDERED: NORMODYNE IV PRN (12:02)
[2018-02-13] MEDS ORDERED: HEPARIN SUB-Q SCH (12:16)
[2018-02-13] MEDS: SODIUM CHLORIDE FLUSH SYRINGE 10 ML IV SCH ×2 (12:33→12:34)
[2018-02-13] MEDS: REGLAN IV PRN ×2 (12:34→17:41)
--- NOTE | 2018-02-13 14:22 | Consultation ---
History of Present Illness Consult date: 02/13/18 History of present illness: I have personally checked the CT and it is normal the MRI shows very slight change in the left basal ganglia not typical for stroke or infection see dictated report plan to follow Past History Past Medical History: anemia, diabetes, dialysis, ESRD, hypertension Past Surgical History: Other (AV Fistula) Social history: . denies: smoking, alcohol abuse, prescription drug abuse Family history: hypertension Medications and Allergies Allergies Allergy/AdvReac Type Severity Reaction Status Date / Time gluten Allergy Unknown Verified 02/11/18 10:37 latex Allergy Unknown Verified 02/11/18 10:34 nickel Allergy Unknown Verified 02/11/18 10:37 Home Medications Medication Instructions Recorded Confirmed Last Taken Type Carvedilol [Coreg] 25 mg PO BID 02/11/18 02/11/18 Unknown History Insulin Aspart [NovoLOG Flexpen] 20 units SUB-Q QDAY 02/11/18 02/11/18 Unknown History NIFEdipine [] 90 mg PO DAILY 02/11/18 02/11/18 Unknown History hydrALAZINE [Apresoline TAB] 100 mg PO TID 02/11/18 02/11/18 Unknown History Active Meds: Active Medications Acetaminophen (Tylenol) 650 mg PO Q4H PRN PRN Reason: Pain, Mild (1-3) Atorvastatin Calcium (Lipitor) 40 mg PO QHS [facility] Last Admin: 02/13/18 02:47 Dose: Not Given Bisacodyl (Dulcolax) 10 mg NC QDAY PRN PRN Reason: Constipation Carvedilol (Coreg) 25 mg PO BID [facility] Last Admin: 02/13/18 11:51 Dose: Not Given Dextrose (D50w (25gm) Syringe) 50 ml IV PRN PRN PRN Reason: Hypoglycemia Diphenhydramine HCl (Benadryl) 25 mg IV Q6H PRN PRN Reason: Itching Last Admin: 02/13/18 08:46 Dose: 25 mg Hydralazine HCl (Apresoline) 100 mg PO TID [facility] Last Admin: 02/13/18 11:50 Dose: Not Given Hydralazine HCl (Apresoline) 10 mg IV Q4HR PRN PRN Reason: Blood Pressure Last Admin: 02/13/18 12:34 Dose: 10 mg Sodium Chloride (Nacl 0.9%) 100 mls @ 999 mls/hr IV ALONSO PRN PRN Reason: Hypotension Insulin Human Lispro (Humalog) 0 unit SUB-Q Q4H [facility]; Protocol Last Admin: 02/13/18 12:43 Dose: 6 unit Labetalol HCl (Normodyne) 10 mg IV Q4H PRN PRN Reason: Blood Pressure Metoclopramide HCl (Reglan) 5 mg IV Q6H PRN PRN Reason: Nausea And Vomiting Last Admin: 02/13/18 12:34 Dose: 5 mg Nifedipine (Procardia Xl) 90 mg PO QDAY [facility] Last Admin: 02/13/18 11:52 Dose: Not Given Ondansetron HCl (Zofran) 4 mg IV Q4H PRN PRN Reason: Nausea And Vomiting Last Admin: 02/13/18 08:46 Dose: 4 mg Sodium Chloride (Sodium Chloride Flush Syringe 10 Ml) 10 ml IV BID [facility] Last Admin: 02/13/18 12:34 Dose: 10 ml Sodium Chloride (Sodium Chloride Flush Syringe 10 Ml) 10 ml IV PRN PRN PRN Reason: LINE FLUSH Physical Examination - Vital Signs Vital Signs: Vital Signs Pulse Resp BP 91 H 18 256/129 02/11/18 11:00 02/11/18 11:00 02/11/18 11:00 - Assessment Assessment Interval: Baseline - Level of Consciousness 1a. Level of Consciousness: alert - LOC Questions 1b. LOC Questions: answers correctly - LOC Command 1c. LOC Commands: performs tasks correctly - Best Gaze 2. Best Gaze: normal - Visual 3. Visual: no visual loss - Facial Palsy 4. Facial Palsy: partial paralysis - Motor Arm 5b. Motor Arm Right: no drift - Motor Leg 6a. Motor Leg Left: no movement - Limb Ataxia 7. Limb Ataxia: absent - Sensory 8. Sensory: mild/moderate sensory loss - Best Language 9. Best Language: no aphasia - Dysarthria 10. Dysarthria: mild/moderate dysarthria - Extinction and Inattention 11. Extinction/Inattention: no abnormality Results - Laboratory Findings CBC and BMP: 02/13/18 04:33 02/13/18 04:33 Abnormal Lab Findings: Abnormal Labs 02/11/18 02/11/18 02/11/18 10:39 10:46 10:46 WBC 4.1 L RBC 3.51 L Hgb 9.7 L Hct 29.6 L RDW Lymph % (Auto) 9.1 L Lymph # 0.4 L Seg Neutrophils % 83.8 H Sodium 121 L Potassium Chloride 82.9 L Carbon Dioxide BUN 42 H Creatinine 8.4 H Glucose 808 H* POC Glucose > 500 H Troponin T 0.047 H HDL Cholesterol 63 H 02/11/18 02/11/18 02/11/18 13:52 15:22 15:35 WBC RBC Hgb Hct RDW Lymph % (Auto) Lymph # Seg Neutrophils % Sodium 123 L Potassium 3.5 L D Chloride 82.5 L Carbon Dioxide 19 L BUN 42 H Creatinine 8.0 H Glucose 631 H* POC Glucose > 500 H > 500 H Troponin T HDL Cholesterol 02/11/18 02/11/18 02/11/18 18:45 18:49 20:22 WBC RBC Hgb Hct RDW Lymph % (Auto) Lymph # Seg Neutrophils % Sodium 134 L D Potassium Chloride 92.5 L Carbon Dioxide BUN 25 H Creatinine 5.0 H Glucose 283 H POC Glucose 277 H 205 H Troponin T HDL Cholesterol 02/11/18 02/11/18 02/11/18 21:13 22:04 22:13 WBC RBC Hgb Hct RDW Lymph % (Auto) Lymph # Seg Neutrophils % Sodium 136 L Potassium 3.4 L Chloride 96.9 L Carbon Dioxide BUN 18 H Creatinine 4.8 H Glucose POC Glucose 158 H 67 L Troponin T HDL Cholesterol 02/12/18 02/12/18 02/12/18 04:06 05:22 06:29 WBC RBC Hgb Hct RDW Lymph % (Auto) Lymph # Seg Neutrophils % Sodium Potassium Chloride Carbon Dioxide BUN Creatinine Glucose POC Glucose 113 H 142 H 160 H Troponin T HDL Cholesterol 02/12/18 02/12/18 02/12/18 06:52 08:21 09:52 WBC RBC Hgb Hct RDW Lymph % (Auto) Lymph # Seg Neutrophils % Sodium Potassium Chloride Carbon Dioxide BUN Creatinine Glucose POC Glucose 143 H 146 H 186 H Troponin T HDL Cholesterol 02/12/18 02/12/18 02/13/18 10:19 12:28 00:02 WBC RBC Hgb Hct RDW Lymph % (Auto) Lymph # Seg Neutrophils % Sodium 130 L Potassium Chloride 90.1 L Carbon Dioxide 19 L D BUN 20 H Creatinine 5.5 H Glucose 190 H POC Glucose 235 H 362 H Troponin T HDL Cholesterol 02/13/18 02/13/18 02/13/18 02:45 04:32 04:33 WBC 11.2 H RBC Hgb Hct RDW 15.4 H Lymph % (Auto) Lymph # Seg Neutrophils % Sodium Potassium Chloride Carbon Dioxide BUN Creatinine Glucose POC Glucose 266 H 253 H Troponin T HDL Cholesterol 02/13/18 02/13/18 02/13/18 04:33 08:30 12:32 WBC RBC Hgb Hct RDW Lymph % (Auto) Lymph # Seg Neutrophils % Sodium 136 L Potassium Chloride 89.1 L Carbon Dioxide 21 L BUN 30 H Creatinine 7.0 H Glucose 250 H POC Glucose 187 H 277 H Troponin T HDL Cholesterol
[2018-02-13] MEDS ORDERED: PROTONIX 80 MG in NACL 0.9% 100 ML IV SCH (16:00)
[2018-02-13] MEDS ORDERED: CATAPRES-TTS PATCH TD SCH (18:00)
[2018-02-13] MEDS ORDERED: NACL 0.9% 250ML 250 ML IV ONE (20:46)
[2018-02-13 21:27] VITALS: BP 201/108
[2018-02-13] MEDS ORDERED: MORPHINE IV ONE (21:59)
[2018-02-14] MEDS: HumaLOG SUB-Q SCH ×2 (01:31→01:33)
[2018-02-14] MEDS: SODIUM CHLORIDE FLUSH SYRINGE 10 ML IV SCH (01:32)
--- NOTE | 2018-02-14 02:52 | Event Note ---
Date: 02/13/18 I was called by the nurse on duty attending to patient who said that the family requested for transfer of patient to another hospital([facility]). Patient' s stated that patient hasn't been well cared for in this hospital and that they are not satisfied with the treatment she has received so far. Patient 's family through the requested that patient be transferred to [facility] where they said that patient has been cared for in the past, the family also said that the patient is on transplant list for kidney and pancreas at [facility]. Patient was seen and evaluated, and was complaining about abdominal pain and nausea: vital sign done earlier showed elevated Blood presure , Patient had I.V hydralazine 10mg given earlier and has been undergoing evaluation for possible CVA with neurology consult pending. IV morphine 2 mg was ordered to be given with IV Zofran ordered previously. Patient was mornitored with plan to correct the hyperglycemia and blood pressure prior to transfer. [facility] was contacted through the transfer center for transfer as requested by the family and the transfer center called back and stated that patient was not in their transplant list as stated by the family and was last seen in their hospital in 2016, but I told the transfer center to continue the plan for transfer to [place] as requested. Patient's father came while a call from [facility] for transfer was awaited and requested that all treatment and plans be stopped and said that they will take the patient away from the hospital AGAINST MEDICAL ADVICE despite my discussions and advised to the family and despite the arrangements to transfer the patient to [facility] as requested. Patient left the hospital against medical advice at about 23;55 with the vital sign showing blood presure of 168/ 86,pulse of 97,respiration of 18 and 02 saturation of 98% on room air.
--- NOTE | 2018-02-14 06:52 | Discharge Summary ---
Providers - Providers Date of Admission: 02/11/18 15:08 Attending physician: HUNTER DOMINGUEZ 02/11/18 11:26 PICC Line Placement [Consult to PICC Line RN] [CONS] Stat Reason For Exam: iv access Type Line:: PICC 02/11/18 15:03 Consult to Physician [CONS] Routine Comment: OFFICE ANTONY NOTIFIED [id number] Consulting Provider: NATHANIEL TSAI Physician Instructions: Reason For Exam: esrd 02/11/18 15:11 Occupational Therapy Evaluate and Treat [CONS] Routine Comment: Reason For Exam: Neuro deficits Physical Therapy Evaluation and Treat [CONS] Routine Comment: Reason For Exam: Neuro deficits 02/13/18 12:01 Consult to Physician [CONS] Routine Comment: Consulting Provider: RED PEÑA Physician Instructions: Reason For Exam: ?evaluate for Intracranial hemorrhage 02/13/18 15:10 Consult to Physician [CONS] Routine Comment: Consulting Provider: BLUE ELLSWORTH Physician Instructions: Reason For Exam: n/v, hematemesis Primary care physician: CRIMINOLOGY PROFESSOR Hospitalization Condition: Critical Disposition: DC-07 LEFT AGAINST MED ADVICE Core Measure Documentation - Palliative Care Palliative Care/ Comfort Measures: Not Applicable - Core Measures Any of the following diagnoses?: none (patient left AMA so finally conclusion was pending) - VTE Discharge Requirements Deep Vein Thrombosis/Pulmonary Embolism Present on Admission: No Has pt received <5 days of overlap therapy or INR<2.0: No Anticoagulant overlap therapy prescribed at discharge: No Contraindication No Overlap Therapy order at DC: Not Indicated Exam - Constitutional Vitals: Temp Pulse Resp BP Pulse Ox 99.3 F 96 H 13 201/108 100 02/13/18 22:29 02/13/18 21:26 02/13/18 22:09 02/13/18 21:26 02/13/18 20:59 Plan Follow up with: PRIMARY MD PETER [Primary Care Provider] - 7 Days
== END 2018-02-13 23:55 | disposition left against medical advice (07) | DRG 637 ==
LOC: ED 10:33 → CC1 15:08 → IMCU 02-12 18:34
PROVIDERS: ADMIT Internal Medicine; ATTEND Internal Medicine
PROC: 5A1D70Z Performance of Urinary Filtration, Intermittent, Less than 6 Hours Per Day (ICD-10-PCS; principal; 2018-02-11)
DX: E10.11 Type 1 diabetes mellitus with ketoacidosis with coma (principal); N18.6 End stage renal disease; G93.40 Encephalopathy, unspecified; E87.1 Hypo-osmolality and hyponatremia; I12.0 Hypertensive chronic kidney disease with stage 5 chronic kidney disease or end stage renal disease; K92.0 Hematemesis; I16.1 Hypertensive emergency; E10.22 Type 1 diabetes mellitus with diabetic chronic kidney disease; D64.9 Anemia, unspecified; Z82.49 Family history of ischemic heart disease and other diseases of the circulatory system; Z91.040 Latex allergy status; Z79.4 Long term (current) use of insulin; Z99.2 Dependence on renal dialysis
CPT/HCPCS: 36415; 70450; 70496; 70498; 70544; 70551; 80048; 80061; 82271; 82962; 83735; 84100; 84484; 85025; 85027; 85610; 85670; 85730; 93005; 93010; 93306; 94760; A9270-GY; C9113; J0360; J1200; J1815; J2270; J2405; J2765; J3010; J7030; J7050; Q0162; Q9967